=== PATIENT | female | born 1985 | race Caucasian/White ===

== ENCOUNTER 2023-03-30 15:58 | Emergency (ER) | payer SELFPAY ==
[2023-03-30] MEDS ORDERED: Sodium Chloride 0.9% 1,000 ML IV SCH (16:15)
[2023-03-30 16:34] LABS: BASOPHILS PERCENT AUTO 0.5 % (0.2-1.5); EOSINOPHILS ABSOLUTE AUTO 0.1 x10-3/uL (0.0-0.8); EOSINOPHILS PERCENT AUTO 1.9 % (0.6-8.1); HEMATOCRIT 41.9 % (34.2-48.2); HEMOGLOBIN 14.6 g/dL (11.4-15.5); LYMPHOCYTES ABSOLUTE AUTO 2.4 x10-3/uL (1.0-4.4); LYMPHOCYTES PERCENT AUTO 38.1 % (18.4-52.1); MEAN CORPUSCULAR HGB CONC 34.9 g/dL (31.9-34.8); MEAN CORPUSCULAR VOLUME 91.7 fL (76.7-100.5); MEAN PLATELET VOLUME 8.6 fL (7.1-12.4); MONOCYTES ABSOLUTE AUTO 0.4 x10-3/uL (0.3-1.0); MONOCYTES PERCENT AUTO 5.7 % (4.4-15.7); NEUTROPHILS ABSOLUTE AUTO 3.4 x10-3/uL (1.5-6.3); NEUTROPHILS PERCENT AUTO 53.8 % (30.8-76.2); PLATELET COUNT,PLT 270 x10(3)uL (151-488); RED BLOOD CELL COUNT 4.57 x10(6)uL (3.60-5.20); RED CELL DISTRIBUTION WIDTH 12.8 % (12.3-16.5); WHITE BLOOD CELL COUNT,WBC 6.4 x10-3/uL (3.0-10.3)
[2023-03-30 16:37] LABS: BLOOD UREA NITROGEN,BUN 8 mg/dL (7-18); BUN/CREATININE RATIO 13.3 (9-20); CALCIUM 7.8 mg/dL (8.6-10.2); CARBON DIOXIDE,CO2 26 mmol/L (21-32); CHLORIDE,CL 105 mmol/L (100-110); CREATININE 0.6 mg/dL (0.55-1.02); EST CRCL DRUG DOSING (CG) 115.52 mL/min; ESTIMATED GFR 118 mL/min (>60); GLUCOSE RANDOM 103 mg/dL (80-116); SODIUM,NA 142 mmol/L (135-145)
[2023-03-30 16:42] LABS: INR 1.01 (1.00-1.24); PROTHROMBIN TIME 10.4 sec (9.0-11.1)
[2023-03-30 16:43] LABS: ALANINE AMINOTRANSFERASE,ALT 41 U/L (12-36); ALBUMIN 3.2 g/dL (3.5-5.2); ALKALINE PHOSPHATASE 60 IU/L (56-112); ASPARTATE AMNIOTRANSFERASE,AST 37 IU/L (5-25); BILIRUBIN TOTAL 0.3 mg/dL (0.1-1.3); PROTEIN TOTAL,TP 6.5 g/dL (6.0-8.0)
[2023-03-30 16:44] LABS: PTT,PARTIAL THROMBOPLSTIN TIME 25.6 SECONDS (24.4-33.2)
[2023-03-30 16:50] LABS: TROPONIN I 4.1 pg/mL (4.0-60.3)
[2023-03-30] MEDS ORDERED: Acetaminophen 500 MG Tab PO ONE (16:55)
[2023-03-30] MEDS ORDERED: traMADol 50 MG Tab PO ONE (16:55)
[2023-03-30] MEDS ORDERED: Ondansetron 4 MG/2 ML SDV IVPUSH ONE (16:55)
[2023-03-30] MEDS ORDERED: Ketorolac 30 MG/ML SDV IVPUSH ONE (16:57)
[2023-03-30] MEDS ORDERED: Potassium Chloride 20 MEQ Tab.ER PO ONE (16:57)
[2023-03-30] MEDS ORDERED: Calcium Gluconate 10% 1 GM/10 ML SDV IVPUSH ONE (17:42)
[2023-03-30 17:46] LABS: LACTIC ACID 1.9 mmol/L (0.4-2.0)
[2023-03-30 17:57] LABS: BILIRUBIN,URINE NEGATIVE (NEGATIVE); GLUCOSE,URINE NORMAL (NORMAL); KETONES,URINE NEGATIVE (NEGATIVE); LEUKOCYTE ESTERASE,URINE NEGATIVE (NEGATIVE); NITRITE,URINE NEGATIVE (NEGATIVE); OCCULT BLOOD,URINE NEGATIVE (NEGATIVE); PROTEIN,URINE NEGATIVE (NEGATIVE); UROBILINOGEN,URINE NORMAL (NEGATIVE)
[2023-03-30 18:26] LABS: APPEARANCE,URINE CLEAR (CLEAR); COLOR,URINE YELLOW (YELLOW)
[2023-03-30 18:27] LABS: AMPHETAMINES SCREEN, URINE POSITIVE (NEGATIVE); BACTERIA,URINE RARE (NS); BARBITURATE SCREEN,URINE NEGATIVE (NEGATIVE); BENZODIAZEPINES SCREEN,URINE NEGATIVE (NEGATIVE); BUPRENORPHINE SCREEN,URINE POSITIVE (NEGATIVE); METHADONE SCREEN, URINE NEGATIVE (NEGATIVE); METHAMPHETAMINE SCREEN, URINE POSITIVE (NEGATIVE); OXYCODONE SCREEN,URINE NEGATIVE (NEGATIVE); PROPOXYPHENE SCREEN,URINE NEGATIVE (NEGATIVE); RBC,URINE NOT SEEN (0-5); SQUAMOUS EPITHELIAL CELLS,UR RARE (NS,R,O); THC SCREEN,URINE NEGATIVE (NEGATIVE); WBC,URINE 0-5 (0-5)
[2023-03-30] MEDS ORDERED: Ketorolac 30 MG/ML SDV IM ONE (19:50)
== END 2023-03-30 20:18 | disposition home or self-care (01) ==
LOC: FB.ED 15:58
DX: G43.909 Migraine, unspecified, not intractable, without status migrainosus (principal); E87.6 Hypokalemia; E83.51 Hypocalcemia; I50.9 Heart failure, unspecified; Z79.899 Other long term (current) drug therapy
CPT/HCPCS: 36415; 71045; 80053; 80307; 81001; 83605; 83880; 84484; 85025; 85610; 85730; 93005; 96372; 96374; 96375; 99285; A9270; J0612; J1885; J2405; J7030